=== PATIENT | male | born 1985 | race Caucasian/White ===

== ENCOUNTER 2016-12-08 08:25 | Emergency (ER) | payer MEDICAID ==
[~2016-12-08] VITALS: Ht 172.7 cm; Wt 80.0 kg
[~2016-12-08 08:25] MED LIST: Z.0.NO CURRENT MEDS
[2016-12-08 08:28] VITALS: BP 142/86; PULSE 72; RESP 16; TEMP 97.8; O2SAT 98
--- NOTE | 2016-12-08 08:54 | PD ---
HPI Chief Complaint: Injury Time Seen by Provider: 08:38 Travel History International Travel<30 days: No Contact w/Intl Traveler<30days: No Traveled to known affect area: No History of Present Illness HPI This 31-year-old man who presents to the emergency department complaining of right hip pain off and on her since [place]. He notices clicking and crunching with certain movements. His certain bending twisting movements and seemed to exacerbate the pain. Weightbearing itself does not exacerbate the pain. Overall symptoms are improving but is worried there may be something wrong that could worsen. No history of previous similar symptoms. No other complaints. History Past Medical History Medical History: Denies Significant Hx Tetanus Vaccination: < 5 Years Influenza Vaccination: No Past Surgical History Surgical History: No Previous Surgery Social History Alcohol Use: Yes (SOCIAL) Tobacco Use: No Allergies-Medications (Allergen,Severity, Reaction): Coded Allergies: No Known Allergies (Unverified , 12/08/16) Reported Meds & Prescriptions Reported Meds & Active Scripts Active No Active Prescriptions or Reported Medications Review of Systems Except as stated in HPI: all other systems reviewed are Neg Physical Exam Narrative GENERAL: 31-year-old man, no acute distress. SKIN: Warm and dry. CARDIOVASCULAR: Warm and well perfused. RESPIRATORY: Normal rate and effort. MUSCULOSKELETAL: Normal appearance of the right hip. Full passive range of motion. Full active range of motion. Strength full and equal. With certain movements I can feel a little bit attended popping. No obvious crepitus. There is no ecchymosis or bruising. Only area of tenderness is immediately posterior to just behind the greater tuberosity in the soft tissues. NEUROLOGICAL: Awake and alert. No gross deficits. Data Data Last Documented VS Vital Signs Date Time Temp Pulse Resp B/P Pulse Ox O2 Delivery O2 Flow Rate FiO2 12/08/16 08:28 97.8 72 16 142/86 98 Orders Hip, Uni(Ap&Lat) W Ap Pelvis (12/08/16 ) MDM Medical Decision Making Medical Screen Exam Complete: Yes Emergency Medical Condition: Yes Interpretation(s) Hip and pelvis x-ray: Negative Differential Diagnosis Avulsions, greater tuberosity fracture, other Narrative Course Medical decision making This is a 31-year-old man who presents to the emergency department with right hip pain and tenderness, worse with certain movement suggestive of possible avulsion fracture or soft tissue injury. We'll check x-ray of the right hip, continue supportive treatment. Diagnosis Primary Impression: Right hip pain Additional Instructions: Use ibuprofen as needed for pain. Continue normal activities. Follow up with her primary doctor for not completely improved in 2-3 weeks. Turn to the emergency department for any new or worsening symptoms. Scripts No Active Prescriptions or Reported Meds Disposition: 01 DISCHARGE HOME Condition: Stable Filippo Mistry MD Dec 08, 2016 08:54
--- NOTE | 2016-12-08 09:14 | RADHPO ---
EXAM DATE/TIME: 12/08/2016 08:56 [facility] COMPARISON: No previous studies available for comparison. INDICATIONS : Right side hip pain after fall. MEDICAL HISTORY : None. SURGICAL HISTORY : None. ENCOUNTER: Initial ACUITY: 3 weeks PAIN SCORE: 4/10 LOCATION: Right posterior hip FINDINGS: Examination of the right hip was performed with AP Pelvis. The primary and secondary trabecular priti violeta of the femoral neck is intact. The hip joint is of normal width without significant sclerosis or bony hypertrophy. The acetabulum is grossly intact. CONCLUSION: No acute disease. Steve Soto MD on December 08, 2016 at 9:11 Board Certified Radiologist. This report was verified electronically.
== END 2016-12-08 09:39 | disposition home or self-care (01) ==
LOC: PHED 08:25
DX: M25.551 Pain in right hip (principal); W01.0XXA Fall on same level from slipping, tripping and stumbling without subsequent striking against object, initial encounter; Y92.89 Other specified places as the place of occurrence of the external cause
CPT/HCPCS: 73502; 99284